=== PATIENT | male | born 1985 | race Caucasian/White ===

== ENCOUNTER 2019-06-28 16:23 | Emergency (ER) | payer BC ==
[~2019-06-28] VITALS: Ht 188 cm; Wt 108.9 kg
--- NOTE | 2019-06-28 16:25 | NUR ---
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
--- NOTE | 2019-06-28 16:28 | NUR ---
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
[2019-06-28] MEDS ORDERED: EPINEPHRINE (1:1000) 1 MG/ML AMPUL ONE (16:35)
[2019-06-28] MEDS ORDERED: diphenhydrAMINE HCL 50 MG/ML VIAL ONE (16:35)
[2019-06-28] MEDS ORDERED: methylPREDNISolone SOD SUCC 125 MG/2ML VIAL ONE (16:35)
[2019-06-28] MEDS ORDERED: ALBUTEROL FS 2.5 MG/0.5 ML VIAL.NEB ONE (16:43)
[2019-06-28] MEDS ORDERED: IPRATROPIUM NEB FS 0.5 MG/2.5 ML AMPUL.NEB ONE (16:43)
--- NOTE | 2019-06-28 16:44 | NUR ---
RT AT BEDSIDE FOR BREATHING TX
[2019-06-28] MEDS ORDERED: IPRATROPIUM NEB FS 0.5 MG/2.5 ML AMPUL.NEB NEB ONE (17:00)
[2019-06-28] MEDS ORDERED: diphenhydrAMINE HCL 50 MG/ML VIAL IV ONE (17:00)
[2019-06-28] MEDS ORDERED: methylPREDNISolone SOD SUCC 125 MG/2ML VIAL IV ONE (17:00)
[2019-06-28] MEDS ORDERED: FAMOTIDINE/PF INJ 20 MG/2 ML VIAL IV ONE (17:00)
[2019-06-28] MEDS ORDERED: ALBUTEROL FS 2.5 MG/0.5 ML VIAL.NEB NEB ONE (17:00)
[2019-06-28] MEDS ORDERED: EPINEPHRINE (1:1000) MDV 30 MG/30ML VIAL SUBCUT ONE (17:00)
--- NOTE | 2019-06-28 17:59 | NUR ---
PATIENT IN BED ASLEEP, EASILY AROUSABLE BY VOICE, HOOKED TO MONITOR, VSS. 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 WILL CONTINUE TO MONITOR ACCORDINGLY.
[2019-06-28 18:41] VITALS: BP 125/86
--- NOTE | 2019-06-28 18:41 | NUR ---
IV removed. Catheter intact and site benign. Pressure and 4x4 applied to site. No bleeding noted.Patient discharged to home in stable condition. Written and verbal after care instructions given. Patient verbalizes understanding of instruction.
== END 2019-06-28 18:41 | disposition home or self-care (01) ==
LOC: ER 16:24
DX: T78.2XXA Anaphylactic shock, unspecified, initial encounter (principal); L50.9 Urticaria, unspecified
CPT/HCPCS: 94640; 96372; 96374; 96375; 99285; J0171 ×2; J1200; J2930